=== PATIENT | female | born 1970 | race Asian ===

== ENCOUNTER 2019-11-02 11:10 | Emergency (ER) | payer SELFPAY ==
--- NOTE | 2019-11-02 11:46 | TELE ---
HPI Do you have fever,cough or shortness of breath?: No - General Reason For Visit: COVID19 TESTING History Source: Patient Past History - Travel History Traveled outside of the country in the last 30 days: No Close contact w/someone who was outside of country & ill: No Review of Systems - Review of Systems Constitutional: No: Fever Respiratory: No: Cough *Physical Exam - Physical Exam Respiratory/Chest: negative: Respiratory Distress Discharge Diagnosis at time of Disposition: Encounter for laboratory testing for COVID-19 virus - Referrals - Patient Instructions - Discharge Disposition: HOME Condition at time of Disposition: Stable
== END 2019-11-02 11:46 | disposition home or self-care (01) ==
LOC: JVIRT 11:10
DX: Z11.59 Encounter for screening for other viral diseases (principal)
CPT/HCPCS: Q3014-GT; U0003